=== PATIENT | male | born 1955 | race African-American/Black ===

== ENCOUNTER 2017-08-06 19:06 | Emergency (ER) | payer OTHER ==
[~2017-08-06] VITALS: Ht 170.2 cm; Wt 91.0 kg
[2017-08-06 19:11] VITALS: Ht 170.2 cm; Wt 91.0 kg
[2017-08-06 20:03] LABS: BASOPHILS % 0.4 % (0.0-2.0); EOSINOPHILS # 0.1 10^3/ul (0.0-0.5); EOSINOPHILS % 1.1 % (0.0-7.0); HEMATOCRIT 40.4 % (42.0-52.0); HEMOGLOBIN 14.1 g/dl (14.0-18.0); LYMPHOCYTES # 2.2 10^3/ul (0.8-2.9); LYMPHOCYTES % 40.6 % (15.0-51.0); MEAN CORPUSCULAR HEMOGLOBIN 31.4 pg (29.0-33.0); MEAN CORPUSCULAR HGB CONC 34.9 g/dl (32.0-37.0); MEAN PLATELET VOLUME 10.4 fl (7.4-10.4); MONOCYTE # 0.5 10^3/ul (0.3-0.9); MONOCYTES % 9.6 % (0.0-11.0); NEUTROPHIL # 2.6 10^3/ul (1.6-7.5); NEUTROPHILS % 48.1 % (39.0-77.0); PLATELET COUNT 239 10^3/UL (140-415); RED BLOOD COUNT 4.49 10^6/ul (4.70-6.10); RED CELL DISTRIBUTION WIDTH 12.7 % (11.5-14.5); WHITE BLOOD COUNT 5.3 10^3/ul (4.8-10.8)
[2017-08-06 20:20] LABS: CALCIUM 9.2 mg/dl (8.4-10.2); CREATININE 1.07 mg/dl (0.61-1.24); POTASSIUM 4.1 mmol/L (3.5-5.1)
[2017-08-06 20:31] LABS: TROPONIN-I 0.03 ng/ml (0.00-0.12)
--- NOTE | 2017-08-06 20:59 | RADRPT ---
PROCEDURE: XR Chest. CLINICAL INDICATION: Chest pain. TECHNIQUE: Anterior chest x-ray. COMPARISON: None. FINDINGS: The lungs are clear. No pleural effusion identified. There is no evidence of pneumothorax. The cardiomediastinal silhouette is unremarkable. The soft tissues are normal. Osseous structures are unremarkable. IMPRESSION: 1. No acute disease is seen in the chest. RPTAT: HLDM .Buzz Kilgore MD, MD Date Time Electronically viewed and signed by .Buzz Kilgore MD, on 08/06/2017 20:59 .M/
--- NOTE | 2017-08-06 21:01 | ERD ---
ER Documentation Chief Complaint Date/Time DATE: 08/06/17 TIME: 20:59 Chief Complaint c/o total body pain, HARRIS, unable to sleep x 10 days. HPI 61-year-old male is here with multiple complaints. His main complaint is he has had difficulty sleeping and he has felt very stressed out over some financial problems overseas that he has been dealing with any states that it is keeping up and making him worried. He even has to fly to [facility] next week to help resolve and figure these issues out. He has no suicidal or homicidal ideations. He also states that 3 days ago he had an episode of left-sided chest pain which has now resolved. He has no cardiac past medical history. He does not drink smoke or use drugs. He is not diabetic or hypertensive. He has no pain at this time and has had no chest pain since 3 days ago. ROS All systems reviewed and are negative except as per history of present illness. Medications Home Meds Active Scripts Lorazepam* (Lorazepam*) 1 Mg Tablet, 1 MG PO Q8H Y for ANXIETY, #20 TAB Prov:ELSIE RAMIREZ PA-C 08/06/17 PMhx/Soc History of Surgery: Yes (left shoulder sygery ) Hx Miscellaneous Medical Probl: Yes (chronic neck and back pain) Hx Alcohol Use: Yes Hx Substance Use: No Hx Tobacco Use: No FmHx Family History: No diabetes Physical Exam Vitals Vital Signs Date Time Temp Pulse Resp B/P Pulse Ox O2 Delivery O2 Flow Rate FiO2 08/06/17 19:11 98.1 77 18 141/72 99 Physical Exam INITIAL VITAL SIGNS: Reviewed by me GENERAL: Awake, alert and oriented x 4, well appearing, nontoxic, speaking in full sentences. No acute distress HEAD: Atraumatic NECK: Supple. No masses. Full range of motion. No meningismus. No midline tenderness. EYES: EOMI. PERRL. RESPIRATORY: Clear to auscultation bilaterally. Symmetric chest wall rise. No wheezing or rales. No accessory muscle use. CV: Regular rate and rhythm. No murmurs, rubs, or gallops. ABDOMEN: Soft, non-distended. Nontender. : Deffered. EXTREMITIES: No clubbing or cyanosis. No edema. Moving all extremities normally. BACK: No midline tenderness to palpation. No step-offs. Result Diagram: 08/06/17194008/06/171940 Results 24 hrs Laboratory Tests Test 08/06/17 19:41 White Blood Count 5.310^3/ul Red Blood Count 4.4910^6/ul Hemoglobin 14.1g/dl Hematocrit 40.4% Mean Corpuscular Volume 90.0fl Mean Corpuscular Hemoglobin 31.4pg Mean Corpuscular Hemoglobin Concent 34.9g/dl Red Cell Distribution Width 12.7% Platelet Count 02301^3/UL Mean Platelet Volume 10.4fl Neutrophils % 48.1% Lymphocytes % 40.6% Monocytes % 9.6% Eosinophils % 1.1% Basophils % 0.4% Nucleated Red Blood Cells % 0.0/100WBC Neutrophils # 2.610^3/ul Lymphocytes # 2.210^3/ul Monocytes # 0.510^3/ul Eosinophils # 0.110^3/ul Basophils # 0.010^3/ul Nucleated Red Blood Cells # 0.010^3/ul Sodium Level 144mmol/L Potassium Level 4.1mmol/L Chloride Level 109mmol/L Carbon Dioxide Level 28mmol/L Anion Gap 11 Blood Urea Nitrogen 15mg/dl Creatinine 1.07mg/dl Glucose Level 104mg/dl Calcium Level 9.2mg/dl Troponin I 0.030ng/ml Procedures/MDM Patient has multiple complaints. His main complaint is unable to sleep and stress secondary to financial problems he has outside of work. However he does state he has an episode of chest pain 3 days ago. The differential diagnosis includes but is not limited to acute coronary syndrome acute myocardial infarction, pericarditis, pulmonary embolism, aortic dissection, pneumonia, pleural effusion, pneumothorax, GERD, chest wall pain, and others. Although he has been asymptomatic since I did order a chest pain workup which included blood work and troponin which was all negative. Chest x-ray and EKG also showed no concerning findings. EKG was normal sinus rhythm with a rate of 68 with no evidence of ST elevation or acute ischemic changes as read by my supervising physician Dr. Cruz. Patient will be discharged with Ativan for his stress and anxiety to help him sleep. Patient counseled regarding my diagnostic impression and care plan. Prior to discharge all questions answered. Pt agrees with treatment plan and understands strict return precautions. Pt is instructed to follow up with primary care provider within 24-48 hours. Precautionary instructions provided including instructions to return to the ER if not improving or for any worsening or changing symptoms or concerns. Departure Diagnosis: Primary Impression: Anxiety Condition: ELSIE Segura PA-C Aug 06, 2017 21:01
[2017-08-06] MEDS ORDERED: LORA1TAB PO (21:04)
== END 2017-08-06 21:10 | disposition home or self-care (01) ==
LOC: FTE 19:06
DX: F41.9 Anxiety disorder, unspecified (principal); R07.9 Chest pain, unspecified
CPT/HCPCS: 36415; 71010; 80048; 84484; 85025; 93005; Z7502

== ENCOUNTER 2018-01-21 17:53 | Emergency (ER) | END 2018-01-21 20:37 | disposition home or self-care (01) ==

== ENCOUNTER 2018-11-09 19:48 | Emergency (ER) | payer OTHER ==
[~2018-11-09] VITALS: Ht 170.2 cm; Wt 97.1 kg
[~2018-11-09 19:48] MED LIST: CYCL10TA7 PO; GABA100C14 PO; LORA1TAB PO; NAPR-985 PO
[2018-11-09 19:59] VITALS: Ht 170.2 cm; Wt 97.1 kg
[2018-11-09] MEDS ORDERED: morphine 4 MG/ML VIAL IV STA (22:41)
[2018-11-09] MEDS ORDERED: ONDANSETRON 4 MG INJ IV STA (22:41)
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
[2018-11-10] MEDS ORDERED: SOD CHLORIDE 0.9% 100 ML ONE (00:11)
[2018-11-10] MEDS ORDERED: IOHEXOL 300MG/ML 150 ML BTL ONE (00:11)
[2018-11-10 01:54] VITALS: BP 149/71; PULSE 59; RESP 20
[2018-11-10] MEDS ORDERED: CYCL10TA7 PO (03:05)
[2018-11-10] MEDS ORDERED: HYDR-4011 PO (03:05)
[2018-11-10] MEDS ORDERED: IBUP-1542 PO (03:05)
== END 2018-11-10 03:35 | disposition home or self-care (01) ==
LOC: FTE 19:48
DX: S30.1XXA Contusion of abdominal wall, initial encounter (principal); S39.012A Strain of muscle, fascia and tendon of lower back, initial encounter; S16.1XXA Strain of muscle, fascia and tendon at neck level, initial encounter; V89.2XXA Person injured in unspecified motor-vehicle accident, traffic, initial encounter
CPT/HCPCS: 36415; 72125; 74177; 80053; 81003; 85025; 96374; 96375; J2270; J2405; Q9967; Z7502; Z7610

== ENCOUNTER 2019-03-27 17:22 | Emergency (ER) | payer OTHER ==
[~2019-03-27] VITALS: Ht 170.2 cm; Wt 89.4 kg
[~2019-03-27 17:22] MED LIST changes: +HYDR-4011 PO; +IBUP-1542 PO
[2019-03-27 17:26] VITALS: BP 131/55; PULSE 75; RESP 18; Ht 170.2 cm; Wt 89.4 kg
[2019-03-27] MEDS ORDERED: ACETAMINOPHEN 500 MG TAB PO STA (17:58)
[2019-03-27] MEDS ORDERED: IBUPROFEN 600 MG TAB PO ONE (18:00)
[2019-03-27] MEDS ORDERED: ACET500C5 PO (18:06)
[2019-03-27] MEDS ORDERED: NAPR-985 PO (18:06)
--- NOTE | 2019-03-27 19:35 | ERD ---
ER Documentation Chief Complaint Chief Complaint rt rib pain x2 weeks HPI Hip is a 63-year-old male patient who presents emergency room with complaint of right rib pain x2 weeks s/p washing car, slipping and falling onto the chest onto james of car. Patient concerned that pain in right chest is still painful, 1 week ago developed cough, congestion, intermittent shortness of breath. She speaks in full sentences, NAD. ROS All systems reviewed and are negative except as per history of present illness. Medications Home Meds Active Scripts Acetaminophen* (Tylophen*) 500 Mg Capsule, 2 CAP PO Q8H PRN for PAIN AND OR ELEVATED TEMP, #20 CAP Prov:ALEC KUMAR NP 03/27/19 Naproxen* (Naprosyn*) 500 Mg Tablet, 500 MG PO BID PRN for PAIN AND/OR INFLAMM ATION, #30 TAB Prov:ALEC KUMAR NP 03/27/19 Cyclobenzaprine Hcl* (Cyclobenzaprine Hcl*) 10 Mg Tablet, 10 MG PO TID, #15 TAB Prov:CLAUDIA AGUILAR NP 11/10/18 Hydrocodone/Acetaminophen ([place] 5-325 Tablet) 1 Each Tablet, 1 TAB PO Q6H PRN for SEVERE PAIN LEVEL 7-10, #7 TAB Prov:CLAUDIA AGUILAR NP 11/10/18 Ibuprofen* (Motrin*) 600 Mg Tab, 600 MG PO Q6H PRN for PAIN AND OR ELEVATED TEMP, #30 TAB Prov:CLAUDIA AGUILAR NP 11/10/18 Gabapentin* (Gabapentin*) 100 Mg Capsule, 100 MG PO TID, #90 CAP Prov:PHONG DHALIWAL MD 03/17/18 Cyclobenzaprine Hcl* (Cyclobenzaprine Hcl*) 10 Mg Tablet, 10 MG PO TID, #30 TAB Prov:VERENA RECINOS PA-C 01/21/18 Naproxen* (Naprosyn*) 500 Mg Tablet, 500 MG PO BID PRN for PAIN AND/OR INFLAMMATION, #30 TAB Prov:VERENA RECINOS PA-C 01/21/18 Lorazepam* (Lorazepam*) 1 Mg Tablet, 1 MG PO Q8H PRN for ANXIETY, #20 TAB Prov:ELSIE RAMIREZ PA-C 08/06/17 Allergies Allergies: Coded Allergies: No Known Allergy (Unverified , 11/09/18) PMhx/Soc History of Surgery: No Anesthesia Reaction: No Hx Neurological Disorder: No Hx Respiratory Disorders: No Hx Cardiac Disorders: No Hx Psychiatric Problems: No Hx Miscellaneous Medical Probl: No Hx Alcohol Use: Yes (occasional) Hx Substance Use: No Hx Tobacco Use: No Smoking Status: Never smoker Physical Exam Vitals Vital Signs Date Temp Pulse Resp B/P (MAP) Pulse Ox O2 O2 Flow FiO2 Time Delivery Rate 03/27/19 36.8 18:06 03/27/19 36.8 18:06 03/27/19 98.2 75 18 131/55 99 17:26 (80) Physical Exam Const: No acute distress Head: Atraumatic Eyes: Normal Conjunctiva ENT: Normal External Ears, Nose and Mouth. Neck: Full range of motion. No meningismus. Resp: Diminished breath sounds, no wheezing, no rhonchi, no rales Cardio: Regular rate and rhythm, no murmurs Abd: Soft, non tender, non distended. Normal bowel sounds, no hepato-or splenomegaly. Tenderness to lower right-sided rib cage, no bruising, no abrasions, no swelling. Skin: No petechiae or rashes Back: No midline or flank tenderness Ext: No cyanosis, or edema Neur: Awake and alert Psych: Normal Mood and Affect Results 24 hrs Current Medications Medications Dose Sig/Anthony Start Time Status Last (Trade) Ordered Route PRN Stop Time Admin Dose Reason Admin Ibuprofen 600 mg ONCE ONCE 03/27/19 DC 03/27/19 (Motrin) PO 18:00 18:06 03/27/19 18:01 1,000 mg ONCE STAT 03/27/19 DC 03/27/19 Acetaminophen PO 17:58 18:06 (Tylenol 03/27/19 18:00 Tab) Procedures/MDM Is a 63-year-old male patient presents emergency room with complaint of right- sided rib pain x2 weeks. ED COURSE: The patient was stable throughout ED course. DIAGNOSTIC IMAGING: Read by radiologist. IMPRESSION: 1. Unremarkable right rib cage x-ray series. MEDICATIONS GIVEN: Ibuprofen, Tylenol Patient tolerated medication well with no adverse reactions. Patient reported improvement in pain. MDM: This patient appears to have right rib contusion. Radiological imaging does not indicate pneumonia, pneumothorax, fracture. Patient has been instructed on good respiratory hygiene, use of moist heat, use of NSAIDs for comfort, deep breathing, and red flags reasons to return to emergency room. DISPOSITION: The patient has been discharge home to follow-up with community physician. Departure Diagnosis: Primary Impression: Rib pain Condition: Stable Patient Instructions: Rib Contusion Additional Instructions: Thank you very much for allowing us to participate in your care. Your health and safety is our top priority at [facility]. Call your primary care doctor TOMORROW for an appointment during the next 2-4 days and bring all the information and medications prescribed. Have prescriptions filled and follow precisely the directions on the label. If the symptoms get worse and your provider is unavailable, return to the Emergency Department immediately. ALEC KUMAR NP March 27, 2019 19:35
== END 2019-03-27 19:26 | disposition home or self-care (01) ==
LOC: FTE 17:22
DX: R07.81 Pleurodynia (principal)
CPT/HCPCS: 71100; Z7502; Z7610